=== PATIENT | female | born 1945 | race Caucasian/White ===

== ENCOUNTER 2017-01-07 22:35 | Emergency (ER) | payer MEDICARE, BC ==
[~2017-01-07] VITALS: Ht 160 cm; Wt 64.4 kg
[2017-01-07] MEDS ORDERED: METHOTREXATE 2.5 MG (23:56)
[2017-01-07] MEDS ORDERED: MELOXICAM 7.5 MG (23:56)
[2017-01-07] MEDS ORDERED: ATORVASTATIN CALCIUM 20 MG TAB (23:56)
[2017-01-07] MEDS ORDERED: RAMIPRIL 10 MG (23:56)
[2017-01-08] MEDS ORDERED: OXYCODONE/APAP 5-325 MG TABLET PO ONE (00:30)
[2017-01-08] MEDS ORDERED: ONDANSETRON ODT 4 MG TAB.RAPDIS SL ONE (00:30)
[2017-01-08] MEDS ORDERED: IBUPROFEN 800 MG TABLET PO ONE (00:30)
[2017-01-08] MEDS ORDERED: CEFTRIAXONE 1 G VIAL IM ONE (00:30)
[2017-01-08] MEDS ORDERED: predniSONE 20 MG TABLET PO ONE (00:30)
[2017-01-08] MEDS ORDERED: LIDOCAINE HCL 1% 20 ML VIAL ONE (00:57)
[2017-01-08] MEDS ORDERED: OXYCODONE/APAP 5-325 MG TABLET ONE ×2 (00:58→01:04)
[2017-01-08] MEDS ORDERED: CEFTRIAXONE 1 G VIAL ONE (00:58)
[2017-01-08] MEDS ORDERED: ONDANSETRON ODT 4 MG TAB.RAPDIS ONE (00:58)
[2017-01-08] MEDS ORDERED: IBUPROFEN 800 MG TABLET ONE (00:58)
[2017-01-08] MEDS ORDERED: predniSONE 50 MG TABLET ONE (00:59)
[2017-01-08] MEDS ORDERED: predniSONE 10 MG TABLET ONE (00:59)
--- NOTE | 2017-01-08 01:07 | NUR ---
Pt c/o right hand and wrist pain and swelling x 1 day, recent DX of wrist tendonitis.
--- NOTE | 2017-01-08 01:09 | NUR ---
Gave pt RX and d/c instructions, verbalized understanding.
== END 2017-01-08 01:13 | disposition home or self-care (01) ==
LOC: ER 22:37
DX: M19.031 Primary osteoarthritis, right wrist (principal); L40.50 Arthropathic psoriasis, unspecified; I10 Essential (primary) hypertension; E78.00 Pure hypercholesterolemia, unspecified
CPT/HCPCS: A4663; J0696; J3490; J7512; Q0162